=== PATIENT | female | born 1940 | race Hispanic/Latino ===

== ENCOUNTER 2020-04-10 14:01 | Emergency (ER) | payer OTHER, MEDICAID ==
[2020-04-10 14:50] LABS: Bilirubin Negative (Negative); Blood, Urine Negative (Negative); Clarity Clear (Clear); Glucose, Urine (Dipstick) Normal (Negative); Ketone, Urine Negative (Negative); Leukocyte Negative Leu/uL (Negative); Nitrite Negative (Negative); Protein, Urine (Dipstick) Negative (Neg-Trace); Specific Gravity, Urine 1.005 (1.002-1.036); Urobilinogen Normal mg/dL (Less than 2)
[2020-04-10 14:55] LABS: #Eosinphils 0.1 thou/uL (0.0-0.7); #Lymphocytes 1.4 thou/uL (1.20-3.40); #Monocytes 0.6 thou/uL (0.11-0.59); #Neutrophils 5.5 thou/uL (1.40-6.50); %Basophils 0.1 % (0.0-1.0); %Eosinophils 1.9 % (0.0-10.0); %Monocytes 7.4 % (0.0-10.0); %Neutrophils 71.6 % (42.0-75.0); Hemoglobin 10.7 g/dL (12.0-16.0); Mean Corpuscular HGB CONC 33.4 g/dL (32.0-36.0); Mean Corpuscular Hemoglobin 28.1 pg (27.0-31.0); Mean Corpuscular Volume 84.1 fL (78.0-98.0); Mean Platelet Volume 8.7 fL (7.4-10.4); Platelet Count 212 thou/uL (130-400); RBC Distribution Width 13.4 % (11.5-14.5); Red Blood Cell (RBC) Count 3.82 mill/uL (4.20-5.40); White Blood Cell (WBC) Count 7.6 thou/uL (4.8-10.8)
[2020-04-10 15:09] LABS: ALT (SGPT) 18 U/L (8-55); AST (SGOT) 22 U/L (5-34); Albumin 4.1 g/dL (3.4-4.8); Alkaline Phosphatase 71 U/L (40-110); Anion Gap 15 mmol/L (10-20); BUN (Urea Nitrogen) 10 mg/dL (9.8-20.1); Bilirubin, Total 0.2 mg/dL (0.2-1.2); Calc. Creatinine Clearance 0 mL/min (70-130); Calcium 8.9 mg/dL (7.8-10.44); Carbon Dioxide 24 mmol/L (23-31); Chloride 101 mmol/L (98-107); Globulin 2.9 g/dL (2.4-3.5); Glucose 200 mg/dL (83-110); Potassium 3.5 mmol/L (3.5-5.1); Sodium 136 mmol/L (136-145)
== END 2020-04-10 16:33 | disposition home or self-care (01) ==
LOC: ERS 14:01
DX: K52.9 Noninfective gastroenteritis and colitis, unspecified (principal); I10 Essential (primary) hypertension; E11.9 Type 2 diabetes mellitus without complications; E03.9 Hypothyroidism, unspecified; Z79.82 Long term (current) use of aspirin; Z79.899 Other long term (current) drug therapy
CPT/HCPCS: 36415; 80053; 81003; 83690; 83735; 85025; 94760

== ENCOUNTER 2022-02-27 20:44 | Inpatient (IN) | payer OTHER, MEDICAID ==
[2022-02-27] MEDS ORDERED: Aspirin Chewable 81 MG TAB ONE (20:57)
[2022-02-27] MEDS ORDERED: Magnesium 2 GM/50 ML BAG (IN WATER) ONE (21:13)
[2022-02-27 21:14] LABS: #Eosinphils 0.2 thou/uL (0.0-0.7); #Lymphocytes 2.3 thou/uL (1.20-3.40); #Monocytes 0.9 thou/uL (0.11-0.59); #Neutrophils 8.4 thou/uL (1.40-6.50); %Eosinophils 1.8 % (0.0-10.0); %Lymphocytes 19.7 % (21.0-51.0); %Monocytes 7.3 % (0.0-10.0); %Neutrophils 71.1 % (42.0-75.0); Hemoglobin 11.1 g/dL (12.0-16.0); Mean Corpuscular Hemoglobin 29.2 pg (27.0-31.0); Platelet Count 188 10x3/uL (130-400); RBC Distribution Width 13.6 % (11.5-14.5); Red Blood Cell (RBC) Count 3.81 mill/uL (4.20-5.40); White Blood Cell (WBC) Count 11.7 10x3/uL (4.8-10.8)
[2022-02-27] MEDS ORDERED: Amiodarone 150 MG/3 ML VIAL ONE (21:27)
[2022-02-27] MEDS ORDERED: CALCIUM GLUC 1 GM/NS 50 ML BAG ONE ×2 (21:33→21:34)
[2022-02-27 21:37] LABS: ALT (SGPT) 21 U/L (8-55); AST (SGOT) 22 U/L (5-34); Alkaline Phosphatase 64 U/L (40-110); Anion Gap 12 mmol/L (10-20); BUN (Urea Nitrogen) 18 mg/dL (9.8-20.1); Bilirubin, Total 0.4 mg/dL (0.2-1.2); CK (CPK) 306 U/L (29-168); Calc. Creatinine Clearance 0 mL/min (70-130); Calcium 8.9 mg/dL (7.8-10.44); Carbon Dioxide 26 mmol/L (23-31); Chloride 96 mmol/L (98-107); Estimated GFR 80; Globulin 2.7 g/dL (2.4-3.5); Glucose 114 mg/dL (83-110); Magnesium 1.5 mg/dL (1.6-2.6); Potassium 3.3 mmol/L (3.5-5.1); Protein, Total 6.7 g/dL (5.8-8.1); Sodium 131 mmol/L (136-145)
[2022-02-27 22:42] LABS: SARS-CoV-2 NAA Rapid Test Not Detected (NotDetected)
[2022-02-27] MEDS ORDERED: Milk Of Magnesia 30 ML UDCUP PO PRN (23:07)
[2022-02-27] MEDS ORDERED: Electrolyte Replacement Protocol 1 EACH IVPB PRN (23:07)
[2022-02-27] MEDS ORDERED: Ondansetron ODT 4 MG TAB PO PRN (23:22)
[2022-02-27] MEDS ORDERED: Enalaprilat Dihydrate 1.25 MG/ML VIAL SLOW IVP PRN (23:22)
[2022-02-27] MEDS ORDERED: Senokot S 8.6-50 MG TAB PO PRN (23:22)
[2022-02-27] MEDS ORDERED: Calcium Carbonate 500 MG ChewTAB PO PRN (23:22)
[2022-02-27 23:24] VITALS: BMI 28.9
[2022-02-27] MEDS ORDERED: Dextrose 5%-Lactated Ringers 1,000 ML IV SCH (23:30)
[2022-02-27] MEDS: Potassium Chloride 20 MEQ in Premix Bag 1 BAG IVPB SCH (23:51)
[2022-02-28] MEDS ORDERED: DOPamine 400 MG/D5W 250 ML 250 ML IVPB SCH (00:30)
[2022-02-28] MEDS ORDERED: HumaLOG 300 UNITS/3 ML VIAL SC PRN ×2 (01:09)
[2022-02-28] MEDS ORDERED: Dextrose 5% in Water 1,000 ML IV PRN (01:09)
[2022-02-28] MEDS ORDERED: Dextrose 50% Abboject 50 ML SYRINGE SLOW IVP PRN (01:09)
[2022-02-28 01:54] LABS: Bacteria/HPF None Seen HPF (None Seen); Bilirubin Negative (Negative); Blood, Urine Negative (Negative); CAUTI Indications for Culture Alt mental st,lethar; Clarity Clear (Clear); Glucose, Urine (Dipstick) Normal (Negative); Ketone, Urine Negative (Negative); Leukocyte Negative Leu/uL (Negative); Nitrite Negative (Negative); Protein, Urine (Dipstick) 10 mg/dL (Neg-Trace); RBC/HPF 0-3 HPF (0-3); Specific Gravity, Urine 1.007 (1.002-1.036); Squamous Epithelial None Seen HPF (0-3); Urobilinogen Normal mg/dL (Less than 2); WBC/HPF None Seen HPF (0-3)
[2022-02-28 01:56] LABS: Urine Culture Reflex No No
[2022-02-28] MEDS: Amiodarone 450 MG, Admixture Fee 1 EACH in Dextrose 5% in Water 250 ML IVPB SCH ×2 (02:02→12:56)
[2022-02-28 02:03] LABS: Troponin I 0.011 ng/mL (< 0.028)
[2022-02-28] MEDS: Potassium Chloride 20 MEQ in Premix Bag 1 BAG IVPB SCH ×3 (02:03→14:25)
[2022-02-28 02:09] LABS: ALT (SGPT) 25 U/L (8-55); AST (SGOT) 24 U/L (5-34); Alkaline Phosphatase 60 U/L (40-110); Anion Gap 13 mmol/L (10-20); BUN (Urea Nitrogen) 17 mg/dL (9.8-20.1); Bilirubin, Total 0.5 mg/dL (0.2-1.2); Calc. Creatinine Clearance 74 mL/min (70-130); Calcium 9.2 mg/dL (7.8-10.44); Carbon Dioxide 24 mmol/L (23-31); Chloride 100 mmol/L (98-107); Estimated GFR 88; Globulin 2.7 g/dL (2.4-3.5); Glucose 111 mg/dL (83-110); Protein, Total 6.7 g/dL (5.8-8.1); Sodium 134 mmol/L (136-145)
[2022-02-28 04:37] LABS: #Basophils 0.1 thou/uL (0.0-0.2); #Eosinphils 0.1 thou/uL (0.0-0.7); #Lymphocytes 1.7 thou/uL (1.20-3.40); #Monocytes 0.7 thou/uL (0.11-0.59); #Neutrophils 7.7 thou/uL (1.40-6.50); %Eosinophils 1.2 % (0.0-10.0); %Lymphocytes 16.2 % (21.0-51.0); %Monocytes 6.8 % (0.0-10.0); %Neutrophils 74.9 % (42.0-75.0); Mean Corpuscular HGB CONC 33.4 g/dL (32.0-36.0); Mean Corpuscular Hemoglobin 29.2 pg (27.0-31.0); Mean Corpuscular Volume 87.5 fl (78.0-98.0); Mean Platelet Volume 9.6 fL (7.4-10.4); Platelet Count 176 10x3/uL (130-400); RBC Distribution Width 13.6 % (11.5-14.5); Red Blood Cell (RBC) Count 3.44 mill/uL (4.20-5.40); White Blood Cell (WBC) Count 10.2 10x3/uL (4.8-10.8)
[2022-02-28 05:01] LABS: Troponin I 0.016 ng/mL (< 0.028)
[2022-02-28] MEDS ORDERED: Magnesium 2 GM/50 ML(in water) 2 GM in Premix Bag 1 BAG IVPB SCH (08:30)
[2022-02-28] MEDS: Aspirin 81 mg Enteric Coated Tablet PO SCH (09:23)
[2022-02-28] MEDS: Famotidine 20 MG TAB PO SCH ×2 (09:23→20:52)
[2022-02-28 10:09] LABS: Potassium 3.3 mmol/L (3.5-5.1)
[2022-02-28] MEDS: hydrALAZINE 20 MG/ML VIAL SLOW IVP PRN ×2 (13:04→17:37)
[2022-02-28] MEDS ORDERED: FENTANYL 50 MCG/ML 1 ML VIAL ONE ×2 (14:52→16:30)
[2022-02-28] MEDS ORDERED: Midazolam HCl 2 mg/2 ml Vial ONE (14:52)
[2022-02-28] MEDS ORDERED: Gentamicin 80 MG/2 ML VIAL ONE (14:53)
[2022-02-28] MEDS ORDERED: Lidocaine 1% (PF) 30 ML VIAL ONE ×2 (14:53→16:32)
[2022-02-28] MEDS ORDERED: CEFAZOLIN 2 GM VIAL ONE (14:53)
[2022-02-28 15:16] LABS: Amphetamine Not Detected (NotDetected); Barbiturates Screen Not Detected (NotDetected); Benzodiazepine Screen Not Detected (NotDetected); Cocaine Metabolite Screen Not Detected (NotDetected); Methadone Not Detected (NotDetected); Methamphetamine Not Detected (NotDetected); Opiate Screen Not Detected (NotDetected); Oxycodone Screen Not Detected (NotDetected); Phencyclidine (PCP) Not Detected (NotDetected); THC/Cannabinoid Screen Not Detected (NotDetected); Tricyclic Screen Not Detected (NotDetected)
[2022-02-28 15:17] LABS: Bacteria/HPF None Seen HPF (None Seen); Bilirubin Negative (Negative); Blood, Urine Negative (Negative); Clarity Clear (Clear); Glucose, Urine (Dipstick) Normal (Negative); Ketone, Urine Negative (Negative); Leukocyte Negative Leu/uL (Negative); Nitrite Negative (Negative); Protein, Urine (Dipstick) 10 mg/dL (Neg-Trace); RBC/HPF 0-3 HPF (0-3); Specific Gravity, Urine 1.006 (1.002-1.036); Squamous Epithelial 0-3 HPF (0-3); Urobilinogen Normal mg/dL (Less than 2); WBC/HPF None Seen HPF (0-3)
[2022-02-28] MEDS: Acetaminophen 325 MG TAB PO PRN ×2 (17:37→22:17)
[2022-02-28] MEDS: Cephalexin 250 MG CAP PO SCH (20:52)
[2022-02-28] MEDS: Dronedarone HCl 400 MG TAB PO SCH (20:52)
[2022-02-28 20:58] LABS: Potassium 3.7 mmol/L (3.5-5.1)
[2022-03-01] MEDS: hydrALAZINE 20 MG/ML VIAL SLOW IVP PRN ×2 (01:04→08:32)
[2022-03-01 02:26] LABS: #Eosinphils 0.2 thou/uL (0.0-0.7); #Lymphocytes 1.7 thou/uL (1.20-3.40); #Monocytes 0.7 thou/uL (0.11-0.59); #Neutrophils 8.4 thou/uL (1.40-6.50); %Basophils 0.4 % (0.0-1.0); %Eosinophils 1.7 % (0.0-10.0); %Monocytes 6.5 % (0.0-10.0); %Neutrophils 76.5 % (42.0-75.0); Hemoglobin 11.4 g/dL (12.0-16.0); Mean Corpuscular HGB CONC 34.1 g/dL (32.0-36.0); Mean Corpuscular Hemoglobin 29.7 pg (27.0-31.0); Mean Corpuscular Volume 87.2 fl (78.0-98.0); Mean Platelet Volume 8.9 fL (7.4-10.4); Platelet Count 219 10x3/uL (130-400); RBC Distribution Width 13.7 % (11.5-14.5); Red Blood Cell (RBC) Count 3.83 mill/uL (4.20-5.40)
[2022-03-01 02:57] LABS: ALT (SGPT) 20 U/L (8-55); AST (SGOT) 20 U/L (5-34); Albumin 3.8 g/dL (3.4-4.8); Alkaline Phosphatase 53 U/L (40-110); Anion Gap 12 mmol/L (10-20); BUN (Urea Nitrogen) 13 mg/dL (9.8-20.1); Bilirubin, Total 0.5 mg/dL (0.2-1.2); Calc. Creatinine Clearance 82 mL/min (70-130); Calcium 9.4 mg/dL (7.8-10.44); Carbon Dioxide 24 mmol/L (23-31); Chloride 105 mmol/L (98-107); Estimated GFR 90; Globulin 2.9 g/dL (2.4-3.5); Glucose 92 mg/dL (83-110); Magnesium 2.1 mg/dL (1.6-2.6); Potassium 3.5 mmol/L (3.5-5.1); Protein, Total 6.7 g/dL (5.8-8.1); Sodium 137 mmol/L (136-145)
[2022-03-01] MEDS: Acetaminophen 325 MG TAB PO PRN (07:36)
[2022-03-01] MEDS: Aspirin 81 mg Enteric Coated Tablet PO SCH (08:32)
[2022-03-01] MEDS: Famotidine 20 MG TAB PO SCH (08:32)
[2022-03-01] MEDS: Cephalexin 250 MG CAP PO SCH ×2 (08:33→13:33)
[2022-03-01] MEDS: Dronedarone HCl 400 MG TAB PO SCH (08:33)
[2022-03-01] MEDS ORDERED: cloNIDine 0.1 MG TAB PO PRN (10:43)
[2022-03-01] MEDS ORDERED: Amlodipine 10 MG TAB PO SCH (12:30)
[2022-03-01] MEDS ORDERED: Sertraline 25 MG TAB PO SCH (12:30)
[2022-03-01] MEDS ORDERED: Carvedilol 6.25 MG TAB PO SCH ×2 (12:30→21:00)
[2022-03-01 14:30] VITALS: TEMP 98.5
[2022-03-01 14:44] VITALS: BP 189/53
[2022-03-01] MEDS ORDERED: Mirtazapine 15 MG TAB PO SCH (21:00)
[2022-03-02] MEDS ORDERED: Levothyroxine Sodium 50 MCG TAB PO SCH (06:00)
[2022-03-02] MEDS ORDERED: Aspirin Chewable 81 MG TAB PO SCH (09:00)
[2022-03-02] MEDS ORDERED: Chlorthalidone 25 MG TAB PO SCH (09:00)
[2022-03-02] MEDS ORDERED: Amlodipine 10 MG TAB PO SCH (09:00)
[2022-03-02] MEDS ORDERED: Rosuvastatin 10 MG TAB PO SCH (09:00)
[2022-03-02] MEDS ORDERED: Sertraline 25 MG TAB PO SCH (09:00)
== END 2022-03-01 14:15 | disposition home or self-care (01) | DRG 243 ==
LOC: ERS 20:44 → CCU 22:12
PROVIDERS: ADMIT Student in an Organized Health Care Education/Training Program; ATTEND Student in an Organized Health Care Education/Training Program
PROC: 0JH606Z Insertion of Pacemaker, Dual Chamber into Chest Subcutaneous Tissue and Fascia, Open Approach (ICD-10-PCS; principal; 2022-02-28)
PROC: 02H60JZ Insertion of Pacemaker Lead into Right Atrium, Open Approach (ICD-10-PCS; 2022-02-28)
PROC: 02HL0JZ Insertion of Pacemaker Lead into Left Ventricle, Open Approach (ICD-10-PCS; 2022-02-28)
DX: I49.5 Sick sinus syndrome (principal); I47.1 Supraventricular tachycardia; Z20.822 Contact with and (suspected) exposure to COVID-19; I49.1 Atrial premature depolarization; I49.3 Ventricular premature depolarization; E11.9 Type 2 diabetes mellitus without complications; E78.5 Hyperlipidemia, unspecified; E03.9 Hypothyroidism, unspecified; E87.6 Hypokalemia; E83.42 Hypomagnesemia; I10 Essential (primary) hypertension; Z79.899 Other long term (current) drug therapy; Z79.84 Long term (current) use of oral hypoglycemic drugs; Z79.4 Long term (current) use of insulin; Z79.82 Long term (current) use of aspirin; Z79.890 Hormone replacement therapy
CPT/HCPCS: 33208; 36415; 36416; 71045; 80053; 80306; 81001; 82550; 83605; 83735; 83880; 84443; 84484; 85025; 87040; 87804; 93005; 93010; 93306; 97139; 99152; 99153; C1785; C1898; J0282; J0283; J0360; J0611; J1580; J1650; J1815; J2001; J2250; J3010; J3475; J3480; J7070; U0002

== ENCOUNTER 2024-12-16 05:11 | Inpatient (IN) | payer OTHER, MEDICAID ==
[2024-12-16 08:45] LABS: #Basophils 0.04 10x3/uL (0.0-0.2); #Eosinophils 0.03 10x3/uL (0.0-0.7); #Monocytes 0.61 10x3/uL (0.11-0.59); #Neutrophils 13.18 10x3/uL (1.40-6.50); %Basophils 0.3 % (0.0-1.0); %Eosinophils 0.2 % (0.0-10.0); %Lymphocytes 6.1 % (21.0-51.0); %Monocytes 4.1 % (0.0-10.0); %Neutrophils 88.3 % (42.0-75.0); Hematocrit 29.7 % (36.0-47.0); Hemoglobin 9.9 g/dL (12.0-16.0); Mean Corpuscular Hemoglobin 28.5 pg (27.0-31.0); Mean Corpuscular Volume 85.6 fL (78.0-98.0); Platelet Count 220 10x3/uL (130-400); Red Blood Cell (RBC) Count 3.47 mill/uL (4.20-5.40); White Blood Cell (WBC) Count 14.92 10x3/uL (4.8-10.8)
[2024-12-16 09:10] LABS: ALT (SGPT) 29 U/L (Less than 34); AST (SGOT) 56 U/L (11-34); Albumin 3.9 g/dL (3.1-4.5); Alkaline Phosphatase 62 U/L (40-110); Anion Gap 15 mmol/L (10-20); BUN (Urea Nitrogen) 21 mg/dL (9.8-20.1); Bilirubin, Total 0.6 mg/dL (0.3-1.2); Calc. Creatinine Clearance 0 mL/min (70-130); Calcium 8.7 mg/dL (7.8-10.44); Carbon Dioxide 24 mmol/L (23-31); Chloride 96 mmol/L (98-107); Globulin 3.2 g/dL (2.4-3.5); Glucose 52 mg/dL (83-110); Lipase 6 U/L (8-78); Potassium 4.8 mmol/L (3.5-5.1); Sodium 130 mmol/L (136-145)
[2024-12-16 09:40] LABS: Bacteria/HPF 2+ HPF (None Seen); CAUTI Indications for Culture Pelvic or flank pain; Glucose, Urine (Dipstick) Normal (Negative); Leukocyte 500 Leu/uL (Negative); Protein, Urine (Dipstick) 50 mg/dL (Neg-Trace); Specific Gravity, Urine 1.012 (1.002-1.036); WBC/HPF Greater than 50 HPF (0-3)
[2024-12-16] MEDS ORDERED: Aspirin Chewable 81 MG TAB ONE (09:55)
[2024-12-16 10:12] LABS: Urine Culture Reflex Yes Yes
[2024-12-16] MEDS ORDERED: Dextrose 50% Abboject 50 ML SYRINGE ONE (10:26)
[2024-12-16] MEDS ORDERED: cefTRIAXone (ROCEPHIN) 1 GM VIAL ONE (10:26)
[2024-12-16] MEDS ORDERED: Enoxaparin 60 MG (0.6 mL) SYRINGE ONE (10:26)
[2024-12-16] MEDS ORDERED: Ondansetron PF 4 MG/2 ML Vial ONE (10:37)
[2024-12-16] MEDS ORDERED: diphenhydrAMINE 50 MG/ML VIAL ONE (11:04)
[2024-12-16] MEDS ORDERED: Ondansetron PF 4 MG/2 ML Vial IVP PRN (12:15)
[2024-12-16] MEDS ORDERED: Iopamidol-370 76% 500 ML MDV (1 ML CHARGE) ONE (12:18)
[2024-12-16 13:24] VITALS: BMI 26.8
[2024-12-16] MEDS: Acetaminophen 325 MG TAB PO PRN (20:30)
[2024-12-16] MEDS: Dextrose 50% Abboject 50 ML SYRINGE SLOW IVP SCH (21:29)
[2024-12-16] MEDS ORDERED: Dextrose 50% Abboject 50 ML SYRINGE SLOW IVP PRN (22:17)
[2024-12-16] MEDS ORDERED: Glucagon 1 MG/ML KIT IM PRN (22:17)
[2024-12-16 22:59] LABS: Hematocrit 29.4 % (36.0-47.0); Hemoglobin 9.6 g/dL (12.0-16.0); Platelet Count 166 10x3/uL (130-400)
[2024-12-16] MEDS: Enoxaparin 60 MG (0.6 mL) SYRINGE SC SCH (22:59)
[2024-12-17] MEDS: Nitroglycerin 2% Ointment 1 INCH/1 GM Packet TOP SCH (00:02)
[2024-12-17] MEDS: Communication Order-Pharmacy FS ONE (00:58)
[2024-12-17 04:53] LABS: Anion Gap 17 mmol/L (10-20); BUN (Urea Nitrogen) 25 mg/dL (9.8-20.1); Calc. Creatinine Clearance 42 mL/min (70-130); Calcium 9.0 mg/dL (7.8-10.44); Carbon Dioxide 20 mmol/L (23-31); Chloride 97 mmol/L (98-107); Glucose 286 mg/dL (83-110); Potassium 3.8 mmol/L (3.5-5.1); Sodium 130 mmol/L (136-145)
[2024-12-17 05:22] LABS: Hematocrit 30.4 % (36.0-47.0); Hemoglobin 9.7 g/dL (12.0-16.0); Mean Corpuscular Hemoglobin 28.0 pg (27.0-31.0); Mean Corpuscular Volume 87.6 fL (78.0-98.0); Platelet Count 170 10x3/uL (130-400); Red Blood Cell (RBC) Count 3.47 mill/uL (4.20-5.40); White Blood Cell (WBC) Count 26.95 10x3/uL (4.8-10.8)
[2024-12-17 06:41] LABS: Platelet Adequacy Comment Platelets Normal; Polychromasia SLIGHT = 2-3 cells HPF (0-2)
[2024-12-17] MEDS: Carvedilol 6.25 MG TAB PO SCH (08:20)
[2024-12-17] MEDS: Aspirin 81 mg Enteric Coated Tablet PO SCH (08:20)
[2024-12-17] MEDS: Enoxaparin 60 MG (0.6 mL) SYRINGE SC SCH (08:21)
[2024-12-17] MEDS: Isosorbide Mononitrate 30 MG ER.TAB.S PO SCH (08:21)
[2024-12-17] MEDS ORDERED: Enoxaparin 40 MG (0.4 mL) SYRINGE SC SCH (09:00)
[2024-12-17] MEDS: cefTRIAXone\\ROCEPHIN 1 GM in Sodium Chloride 0.9% 100 ML IVPB SCH (11:34)
[2024-12-17 15:02] VITALS: BMI 29.5
[2024-12-17] MEDS: Losartan 25 MG TAB PO SCH (16:50)
[2024-12-17] MEDS: NIFEdipine XL 60 MG ER.TAB PO SCH (18:30)
[2024-12-17] MEDS: Nitroglycerin 50 MG/250 ML BOT 250 ML IVPB SCH (18:30)
[2024-12-17] MEDS: Rosuvastatin 10 MG TAB PO SCH (21:29)
[2024-12-17] MEDS: Insulin Glargine 30 UNITS/0.3 ML VIAL SC SCH (21:29)
[2024-12-17] MEDS: Enoxaparin 80 MG (0.8 mL) SYRINGE SC SCH (21:30)
[2024-12-18 03:17] LABS: #Basophils 0.05 10x3/uL (0.0-0.2); #Eosinophils 0.06 10x3/uL (0.0-0.7); #Monocytes 0.69 10x3/uL (0.11-0.59); #Neutrophils 21.84 10x3/uL (1.40-6.50); %Basophils 0.2 % (0.0-1.0); %Eosinophils 0.2 % (0.0-10.0); %Lymphocytes 4.9 % (21.0-51.0); %Monocytes 2.8 % (0.0-10.0); %Neutrophils 89.9 % (42.0-75.0); Hematocrit 29.2 % (36.0-47.0); Hemoglobin 9.6 g/dL (12.0-16.0); Mean Corpuscular Hemoglobin 28.9 pg (27.0-31.0); Mean Corpuscular Volume 88.0 fL (78.0-98.0); Platelet Count 201 10x3/uL (130-400); Red Blood Cell (RBC) Count 3.32 mill/uL (4.20-5.40); White Blood Cell (WBC) Count 24.32 10x3/uL (4.8-10.8)
[2024-12-18 03:45] LABS: Anion Gap 16 mmol/L (10-20); BUN (Urea Nitrogen) 35 mg/dL (9.8-20.1); Calc. Creatinine Clearance 46 mL/min (70-130); Calcium 8.6 mg/dL (7.8-10.44); Carbon Dioxide 23 mmol/L (23-31); Chloride 97 mmol/L (98-107); Glucose 221 mg/dL (83-110); Potassium 3.8 mmol/L (3.5-5.1); Sodium 132 mmol/L (136-145)
[2024-12-18] MEDS: Losartan 25 MG TAB PO SCH (08:14)
[2024-12-18] MEDS: Aspirin Chewable 81 MG TAB PO SCH (08:14)
[2024-12-18] MEDS: Carvedilol 25 MG TAB PO SCH (08:35)
[2024-12-18] MEDS ORDERED: Non-Formulary Item 1 EACH (Aspirin [Aspirin] 81 MG Tablet) PO SCH (09:00)
[2024-12-18] MEDS: Spironolactone 25 MG TAB PO SCH (13:31)
[2024-12-18] MEDS: Valsartan 80 MG TAB PO SCH (14:56)
[2024-12-18] MEDS: Melatonin 3 MG TAB PO PRN (20:32)
[2024-12-18] MEDS: Senokot S 8.6-50 MG TAB PO PRN (20:33)
[2024-12-18] MEDS: NIFEdipine XL 60 MG ER.TAB PO SCH (20:34)
[2024-12-19] MEDS: Valsartan 80 MG TAB PO SCH (00:20)
[2024-12-19 04:27] LABS: #Basophils 0.05 10x3/uL (0.0-0.2); #Eosinophils 0.27 10x3/uL (0.0-0.7); #Monocytes 0.58 10x3/uL (0.11-0.59); #Neutrophils 10.96 10x3/uL (1.40-6.50); %Basophils 0.4 % (0.0-1.0); %Eosinophils 1.9 % (0.0-10.0); %Lymphocytes 12.9 % (21.0-51.0); %Monocytes 4.1 % (0.0-10.0); %Neutrophils 77.4 % (42.0-75.0); Hematocrit 30.3 % (36.0-47.0); Hemoglobin 9.6 g/dL (12.0-16.0); Mean Corpuscular Hemoglobin 28.1 pg (27.0-31.0); Mean Corpuscular Volume 88.6 fL (78.0-98.0); Platelet Count 216 10x3/uL (130-400); Red Blood Cell (RBC) Count 3.42 mill/uL (4.20-5.40); White Blood Cell (WBC) Count 14.14 10x3/uL (4.8-10.8)
[2024-12-19] MEDS: Ketorolac Tromethamine 30 MG (1 mL) VIAL IVP SCH (04:32)
[2024-12-19 04:45] LABS: Anion Gap 15 mmol/L (10-20); BUN (Urea Nitrogen) 28 mg/dL (9.8-20.1); Calc. Creatinine Clearance 59 mL/min (70-130); Calcium 9.0 mg/dL (7.8-10.44); Carbon Dioxide 21 mmol/L (23-31); Chloride 105 mmol/L (98-107); Glucose 155 mg/dL (83-110); Potassium 3.8 mmol/L (3.5-5.1); Sodium 137 mmol/L (136-145)
[2024-12-19] MEDS ORDERED: Spironolactone 25 MG TAB PO SCH (08:00)
[2024-12-19] MEDS ORDERED: Communication Order-Pharmacy FS SCH (08:45)
[2024-12-19] MEDS: diphenhydrAMINE 25 MG CAP PO SCH (17:47)
[2024-12-19] MEDS: predniSONE 20 MG TAB PO SCH (17:47)
[2024-12-19] MEDS: cefTRIAXone (ROCEPHIN) 1 GM VIAL ONE (17:57)
[2024-12-19] MEDS: Senokot S 8.6-50 MG TAB PO SCH (20:58)
[2024-12-19] MEDS: FLU (Fluad Triv) 25-26 (65UP)PF 45 MCG/0.5 ML Syringe IM ONE (21:46)
[2024-12-20 05:30] LABS: #Basophils 0.05 10x3/uL (0.0-0.2); #Eosinophils Less than 0.03 10x3/uL (0.0-0.7); #Monocytes 0.62 10x3/uL (0.11-0.59); #Neutrophils 17.65 10x3/uL (1.40-6.50); %Basophils 0.2 % (0.0-1.0); %Eosinophils 0.1 % (0.0-10.0); %Lymphocytes 6.5 % (21.0-51.0); %Monocytes 3.0 % (0.0-10.0); %Neutrophils 86.6 % (42.0-75.0); Hematocrit 31.1 % (36.0-47.0); Hemoglobin 10.4 g/dL (12.0-16.0); Mean Corpuscular Hemoglobin 28.8 pg (27.0-31.0); Mean Corpuscular Volume 86.1 fL (78.0-98.0); Platelet Count 262 10x3/uL (130-400); Red Blood Cell (RBC) Count 3.61 mill/uL (4.20-5.40); White Blood Cell (WBC) Count 20.40 10x3/uL (4.8-10.8)
[2024-12-20 05:50] LABS: Anion Gap 15 mmol/L (10-20); BUN (Urea Nitrogen) 18 mg/dL (9.8-20.1); Calc. Creatinine Clearance 66 mL/min (70-130); Calcium 9.3 mg/dL (7.8-10.44); Carbon Dioxide 20 mmol/L (23-31); Chloride 104 mmol/L (98-107); Glucose 204 mg/dL (83-110); Potassium 4.3 mmol/L (3.5-5.1); Sodium 135 mmol/L (136-145)
[2024-12-20] MEDS ORDERED: Heparin 10,000 UNITS/ 10 ML VIAL ONE (07:03)
[2024-12-20] MEDS ORDERED: Lidocaine 1% (PF) 30 ML VIAL ONE (07:03)
[2024-12-20] MEDS ORDERED: diphenhydrAMINE 50 MG/ML VIAL ONE (07:04)
[2024-12-20] MEDS ORDERED: Nitroglycerin 50 MG/250 ML BOT 250 ML ONE (07:04)
[2024-12-20] MEDS ORDERED: PHENYLEPHRINE-NS 100 MCG/ML 10 ML SYRINGE ONE (07:04)
[2024-12-20] MEDS ORDERED: hydrALAZINE 20 MG/ML VIAL ONE (08:40)
[2024-12-20 10:24] VITALS: BP 187/44
[2024-12-20 12:17] VITALS: TEMP 98.2
== END 2024-12-20 13:20 | disposition short-term general hospital (02) | DRG 871 ==
LOC: ERS 05:11 → ERHOLD 12:17 → IMCU/EMU 19:37
PROVIDERS: ADMIT Family Medicine; ATTEND Internal Medicine
PROC: 3E03329 Introduction of Other Anti-infective into Peripheral Vein, Percutaneous Approach (ICD-10-PCS; principal; 2024-12-16)
PROC: 3E0234Z Introduction of Serum, Toxoid and Vaccine into Muscle, Percutaneous Approach (ICD-10-PCS; 2024-12-16)
PROC: 3E033XZ Introduction of Vasopressor into Peripheral Vein, Percutaneous Approach (ICD-10-PCS; 2024-12-20)
DX: A41.51 Sepsis due to Escherichia coli [E. coli] (principal); I21.4 Non-ST elevation (NSTEMI) myocardial infarction; N10 Acute pyelonephritis; I48.92 Unspecified atrial flutter; I10 Essential (primary) hypertension; R65.20 Severe sepsis without septic shock; E78.5 Hyperlipidemia, unspecified; E03.9 Hypothyroidism, unspecified; Z60.2 Problems related to living alone; Z96.653 Presence of artificial knee joint, bilateral; F32.A Depression, unspecified; E11.649 Type 2 diabetes mellitus with hypoglycemia without coma; I48.0 Paroxysmal atrial fibrillation; I25.10 Atherosclerotic heart disease of native coronary artery without angina pectoris; I73.9 Peripheral vascular disease, unspecified; B96.20 Unspecified Escherichia coli [E. coli] as the cause of diseases classified elsewhere; Z95.0 Presence of cardiac pacemaker; Z98.890 Other specified postprocedural states; Z90.49 Acquired absence of other specified parts of digestive tract; Z91.041 Radiographic dye allergy status; Z79.82 Long term (current) use of aspirin; Z79.890 Hormone replacement therapy; Z79.899 Other long term (current) drug therapy; Z79.4 Long term (current) use of insulin; Z23 Encounter for immunization
CPT/HCPCS: 0439T; 36415; 36416; 71045; 74177; 80048; 80053; 81001; 83690; 83880; 84443; 84484; 85025; 85379; 87040; 87077; 87086; 87186; 90653; 93005; 93010; 93306; 94660; 96365; 96366; 96372; 96375; C1769; C1887; C1894; J0169; J0360; J0461; J0696; J1200; J1644; J1650; J1815; J1885; J2003; J2250; J2405; J2919; J7030; J7512; J7999; Q9957; Q9967